=== PATIENT | female | born 1930 | race Hispanic/Latino ===

== ENCOUNTER 2019-01-17 10:26 | Inpatient (IN) | payer MEDICARE ==
[2019-01-17] MEDS ORDERED: TORADOL IM ONE ×2 (10:55→12:00)
[2019-01-17] MEDS ORDERED: NORMODYNE IV ONE (10:55)
--- NOTE | 2019-01-17 10:59 | Emergency Department Report ---
ED General Adult HPI - General Chief complaint: Back Pain/Injury Stated complaint: LOW BACK PAIN Time Seen by Provider: 01/17/19 10:49 Source: patient, EMS Mode of arrival: Stretcher Limitations: No Limitations - History of Present Illness Initial comments: This is an 88 year old woman who lives alone and was encouraged to come to the emergency department this morning for back pain of 2 weeks' duration. The patient states her lower back pain was precipitated by a ground level fall. She denies previous problems with her back. She has not had any medical evaluation prior to today. She states that she does have a primary care physician. She denies a history of hypertension or other chronic medical problems although her blood pressure is high today. She states that she does see her primary care physician regularly but is on no medication whatsoever. Patient's back pain is somewhat intermittent and exacerbated by movement. It does not radiate. There are no associated symptoms. -: Gradual, week(s) Location: back Radiation: non-radiation Quality: aching Consistency: intermittent Improves with: none Worsens with: movement Associated Symptoms: denies other symptoms - Related Data Home Medications Medication Instructions Recorded Confirmed Last Taken No Known Home Medications [No 01/17/19 01/17/19 Unknown Reported Home Medications] Allergies Allergy/AdvReac Type Severity Reaction Status Date / Time No Known Allergies Allergy Unverified 01/17/19 10:42 ED Review of Systems ROS: Stated complaint: LOW BACK PAIN Other details as noted in HPI Constitutional: denies: chills, fever Eyes: denies: eye pain, eye discharge, vision change ENT: denies: ear pain, throat pain Respiratory: denies: cough, shortness of breath, wheezing Cardiovascular: denies: chest pain, palpitations Endocrine: no symptoms reported Gastrointestinal: denies: abdominal pain, nausea, diarrhea Genitourinary: frequency. denies: urgency, dysuria, discharge Musculoskeletal: back pain. denies: joint swelling, arthralgia Skin: denies: rash, lesions Neurological: denies: headache, weakness, paresthesias Psychiatric: denies: anxiety, depression Hematological/Lymphatic: denies: easy bleeding, easy bruising ED Past Medical Hx - Past Medical History Previous Medical History?: No - Surgical History Past Surgical History?: No - Social History Smoking Status: Former Smoker Substance Use Type: None - Medications Home Medications: Home Medications Medication Instructions Recorded Confirmed Last Taken Type No Known Home Medications [No 01/17/19 01/17/19 Unknown History Reported Home Medications] ED Physical Exam - General Limitations: No Limitations General appearance: alert, in no apparent distress - Head Head exam: Present: atraumatic, normocephalic - Eye Eye exam: Present: normal appearance. Absent: scleral icterus - ENT ENT exam: Present: mucous membranes moist - Neck Neck exam: Present: normal inspection - Respiratory Respiratory exam: Present: normal lung sounds bilaterally. Absent: respiratory distress - Cardiovascular Cardiovascular Exam: Present: regular rate, normal rhythm. Absent: systolic murmur, diastolic murmur, rubs, gallop - GI/Abdominal GI/Abdominal exam: Present: soft, normal bowel sounds, organomegaly (large and firm liver). Absent: distended, tenderness, guarding, rebound, rigid, mass, bruit, pulsatile mass - Extremities Exam Extremities exam: Present: normal inspection - Back Exam Back exam: Present: normal inspection, paraspinal tenderness (lumbar). Absent: CVA tenderness (R), CVA tenderness (L), muscle spasm, vertebral tenderness - Neurological Exam Neurological exam: Present: alert, oriented X3, CN II-XII intact. Absent: motor sensory deficit - Psychiatric Psychiatric exam: Present: normal affect, normal mood - Skin Skin exam: Present: warm, dry, intact, normal color. Absent: rash ED Course Vital Signs 01/17/19 01/17/19 01/17/19 10:43 11:33 11:53 Temperature 98.1 F Pulse Rate 109 H 79 74 Respiratory 16 17 Rate Blood Pressure 191/88 175/65 Blood Pressure 169/77 [Right] O2 Sat by Pulse 95 100 Oximetry 01/17/19 12:33 Temperature Pulse Rate 84 Respiratory 17 Rate Blood Pressure Blood Pressure 154/66 [Right] O2 Sat by Pulse 100 Oximetry - Reevaluation(s) Reevaluation #1: CT was consistent with metastatic disease both the liver and probably to L3. No primary was identified. Chemistries need to be repeated due to homolysis. A urine as yet pending. The patient is referred to the hospitalist service for further care and evaluation. 01/17/19 13:55 ED Medical Decision Making - Lab Data Result diagrams: 01/17/19 12:40 01/17/19 12:40 - EKG Data -: EKG Interpreted by Me EKG shows normal: sinus rhythm, axis (left), intervals, QRS complexes (suggest LVH, left atrial enlargement), ST-T waves Rate: normal - EKG Data Interpretation: LVH - Radiology Data Radiology results: report reviewed FINDINGS: Abdomen: There are multiple low-density lesions in the liver measures soft ti ssue density concerning for metastatic disease. An index lesion in the right lobe, series 2 image 39 measures 6 cm in diameter. An index lesion in the lateral segment of the left lobe, series 2 image 35 measures 4.9 cm. In addition there is a 7.5 cm lesion in the left lobe. There is an 8 x 4.6 cm lesion in the medial segment of the left lobe and a 6 cm lesion in the caudate lobe. The spleen, pancreas, and small bowel are unremarkable. The adrenal glands show mild nodularity but no definite discrete mass. Kidneys are unremarkable. There is cholelithiasis. Atherosclerotic calcifications are noted in the aorta, renal arteries, and iliac arteries Pelvis: Phleboliths are noted. No adenopathy is seen. No mass lesions are seen pelvis. Sclerotic change at L3 is suspicious for metastatic disease. There is degenerative change in the spine. There is minimal superior endplate compression of the L3 vertebral body. No retropulsed fragments are seen. IMPRESSION: 1. There are mass lesions in the liver likely representing metastatic disease. There is minimal superior endplate compression of the L3 vertebral body which is age indeterminate. There is no surrounding hematoma. There are no retropulsed fragments. There is sclerotic change in the L3 vertebral body which is suspicious for metastatic disease. There is degenerative change in the lower lumbar spine. There is cholelithiasis. There is atherosclerotic disease Critical care attestation.: If time is entered above; I have spent that time in minutes in the direct care of this critically ill patient, excluding procedure time. ED Disposition Clinical Impression: Metastatic carcinoma Lower back pain Qualifiers: Chronicity: chronic Back pain laterality: unspecified Sciatica presence: without sciatica Qualified Code(s): M54.5 - Low back pain; G89.29 - Other chronic pain Disposition: OP ADMIT IP TO THIS HOSP Is pt being admited?: Yes Does the pt Need Aspirin: No Condition: Stable Referrals: JOSEE DANIELS MD [Primary Care Provider] - 3-5 Days Time of Disposition: 13:56
[2019-01-17] MEDS ORDERED: TORADOL IVP ONE (12:00)
[2019-01-17 12:50] LABS: Basophils # (Auto) 0.1 K/mm3 (0.0-0.1); Basophils % (Auto) 0.7 % (0.0-1.8); Eosinophils % (Auto) 0.4 % (0.0-4.3); Hematocrit 48.6 % (30.3-42.9); Hemoglobin 16.4 gm/dl (10.1-14.3); Lymphocytes # (Auto) 0.9 K/mm3 (1.2-5.4); Lymphocytes % (Auto) 11.5 % (13.4-35.0); Mean Corpuscular HGB Conc 34 % (30-34); Mean Corpuscular Volume 88 fl (79-97); Monocytes # (Auto) 0.6 K/mm3 (0.0-0.8); Monocytes % (Auto) 7.9 % (0.0-7.3); Platelet Count 174 K/mm3 (140-440); Red Blood Count 5.51 M/mm3 (3.65-5.03); Red Cell Distribution Width 14.1 % (13.2-15.2)
[2019-01-17 13:21] LABS: Bilirubin,Direct TNR mg/dL (0-0.2)
[2019-01-17 13:22] LABS: Alanine Aminotransferase TNR units/L (7-56)
[2019-01-17 13:30] LABS: BUN/Creatinine Ratio TNR; Blood Urea Nitrogen TNR mg/dL (7-17)
[2019-01-17 13:31] LABS: Albumin TNR g/dL (3.9-5); Calcium TNR mg/dL (8.4-10.2)
[2019-01-17 13:32] LABS: Hemolysis Index TNR
--- NOTE | 2019-01-17 13:34 | Cat Scan Report ---
CT scan of the abdomen and pelvis without contrast INDICATION: LBP. TECHNIQUE: All CT scans at this location are performed using the following dose modulation technique: Automated exposure control. Helical slices were obtained through the abdomen and pelvis. No contrast is adminis tered. COMPARISON: None available. FINDINGS: Abdomen: There are multiple low-density lesions in the liver measures soft tissue density concerning for metastatic disease. An index lesion in the right lobe, series 2 image 39 measures 6 cm in diamete r. An index lesion in the lateral segment of the left lobe, series 2 image 35 measures 4.9 cm. In add ition there is a 7.5 cm lesion in the left lobe. There is an 8 x 4.6 cm lesion in the medial segment of the left lobe and a 6 cm lesion in the caudate lobe. The spleen, pancreas, and small bowel are unremarkable. The adrenal glands show mild nodularity but n o definite discrete mass. Kidneys are unremarkable. There is cholelithiasis. Atherosclerotic calcifications are noted in the aorta, renal arteries, and iliac arteries Pelvis: Phleboliths are noted. No adenopathy is seen. No mass lesions are seen pelvis. Sclerotic change at L3 is suspicious for metastatic disease. There is degenerative change in the spin e. There is minimal superior endplate compression of the L3 vertebral body. No retropulsed fragments are seen. IMPRESSION: 1. There are mass lesions in the liver likely representing metastatic disease. There is minimal superior endplate compression of the L3 vertebral body which is age indeterminate. T here is no surrounding hematoma. There are no retropulsed fragments. There is sclerotic change in the L3 vertebral body which is suspicious for metastatic disease. There is degenerative change in the lo wer lumbar spine. There is cholelithiasis. There is atherosclerotic disease Signer Name: Tre Milian MD Signed: 01/17/2019 1:29 PM Workstation Name: [id number]
--- NOTE | 2019-01-17 14:09 | History and Physical Report ---
History of Present Illness Chief complaint: Weakness, confusion History of present illness: 88 YO Female with No PMH presents to ED for evaluation. Pt is confused and provides limited history. Further history provided by son who is at bedside during exam and interview. As per son, the patient has complained of pain in her back over the past several months with worsening pain over the past 2 weeks. Pt is able to report that she experienced what is described as a ground level fall approximately 2 weeks. ago. Pt has experienced worsening pain over the past time frame. Pt son reports progressive weakness, worsening confusion, decreased ability to independently conduct activities of daily living. Pt lives alone, and is unable to ambulate, and has increased bedbound status. Pt is currently unable to bear weight without increased pain and has experienced multiple falls over the past 2 weeks secondary to weakness and gait instability. EMS notified, and upon arrival the patient was found to be in distress and transported to [facility]. 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 No further history obtainable. Pt admitted to [facility] and treated with supportive care. Past History Past Medical History: No medical history, other (reviewed) Past Surgical History: No surgical history, Other (reviewed) Social history: single. denies: smoking, alcohol abuse, prescription drug abuse Family history: no significant family history (reviewed) Medications and Allergies Allergies Allergy/AdvReac Type Severity Reaction Status Date / Time No Known Allergies Allergy Unverified 01/17/19 10:42 Home Medications Medication Instructions Recorded Confirmed Last Taken Type No Known Home Medications [No 01/17/19 01/17/19 Unknown History Reported Home Medications] Review of Systems ROS unobtainable: due to mental status Exam - Constitutional Vitals: Temp Pulse Resp BP Pulse Ox 98.1 F 84 17 154/66 100 01/17/19 10:43 01/17/19 12:33 01/17/19 12:33 01/17/19 12:33 01/17/19 12:33 General appearance: Present: mild distress, cachectic - EENT Eyes: Present: PERRL ENT: hearing intact, clear oral mucosa - Neck Neck: Present: supple, normal ROM - Respiratory Respiratory effort: normal Respiratory: bilateral: CTA - Cardiovascular Heart Sounds: Present: S1 & S2. Absent: rub, click - Extremities Extremities: pulses symmetrical Extremity abnormal: other (spinal tenderness, ) Peripheral Pulses: within normal limits - Abdominal General gastrointestinal: Present: soft, non-tender, non-distended, normal bowel sounds Female genitourinary: Present: normal - Integumentary Integumentary: Present: clear, warm, dry - Musculoskeletal Musculoskeletal: generalized weakness - Psychiatric Psychiatric: no appropriate mood/affect, no intact judgment & insight, no memory intact - Neurologic Neurologic: CNII-XII intact, no focal deficits, moves all extremities, no gait normal Results - Labs CBC & Chem 7: 01/17/19 13:55 01/17/19 13:55 Labs: Abnormal lab results 01/17/19 Range/Units 12:40 RBC 5.51 H (3.65-5.03) M/mm3 Hgb 16.4 H (10.1-14.3) gm/dl Hct 48.6 H (30.3-42.9) % Lymph % (Auto) 11.5 L (13.4-35.0) % [place] % (Auto) 7.9 H (0.0-7.3) % Lymph # 0.9 L (1.2-5.4) K/mm3 Seg Neutrophils % 79.5 H (40.0-70.0) % Assessment and Plan - Patient Problems (1) Severe malnutrition Current Visit: Yes Status: Acute Plan to address problem: Encourage increased protein intake, dietary supplementation (2) Metastatic malignant neoplasm Current Visit: Yes Status: Acute Qualifiers: Digestive structure secondary neoplasm location: metastatic to liver Plan to address problem: CT head, CT Chest/Abdomen Pelvis, MR lumbar spine, pain control, supportive care, CBC, CMP. (3) Hypertensive urgency, malignant Current Visit: Yes Status: Acute Plan to address problem: supportive care, pain control, IV hydralazine prn for SBP >155 (4) Advance care planning Current Visit: Yes Status: Acute Plan to address problem: Pt care plan discussed with patient and family:+30minutes, (5) DVT prophylaxis Current Visit: Yes Status: Acute Plan to address problem: SCD to BLE while in bed, prophylactic lovenox
[2019-01-17] MEDS ORDERED: ZOFRAN IV PRN (14:14)
[2019-01-17] MEDS ORDERED: TYLENOL PO PRN (14:14)
[2019-01-17] MEDS ORDERED: PROVENTIL IH PRN (14:14)
[2019-01-17] MEDS ORDERED: PERCOCET 5/325 PO PRN (14:14)
[2019-01-17] MEDS ORDERED: MORPHINE IV PRN ×2 (14:14→15:39)
[2019-01-17] MEDS ORDERED: SODIUM CHLORIDE FLUSH SYRINGE 10 ML IV PRN (14:14)
[2019-01-17 14:20] LABS: Basophils # (Auto) 0.1 K/mm3 (0.0-0.1); Basophils % (Auto) 0.6 % (0.0-1.8); Eosinophils % (Auto) 0.1 % (0.0-4.3); Hematocrit 46.9 % (30.3-42.9); Hemoglobin 15.7 gm/dl (10.1-14.3); Lymphocytes # (Auto) 0.9 K/mm3 (1.2-5.4); Mean Corpuscular HGB Conc 34 % (30-34); Mean Corpuscular Volume 88 fl (79-97); Monocytes # (Auto) 0.6 K/mm3 (0.0-0.8); Monocytes % (Auto) 6.7 % (0.0-7.3); Platelet Count 179 K/mm3 (140-440); Red Blood Count 5.32 M/mm3 (3.65-5.03); Red Cell Distribution Width 14.1 % (13.2-15.2)
[2019-01-17 14:45] LABS: Albumin 3.3 g/dL (3.9-5); BUN/Creatinine Ratio 27; Blood Urea Nitrogen 38 mg/dL (7-17); Calcium 9.8 mg/dL (8.4-10.2); Hemolysis Index 104
[2019-01-17 15:00] LABS: Bilirubin,Direct < 0.2 mg/dL (0-0.2)
[2019-01-17 15:01] LABS: Alanine Aminotransferase 29 units/L (7-56)
[2019-01-17] MEDS ORDERED: NACL 0.9% 1000 ML 1,000 ML IV ONE (15:38)
[2019-01-17] MEDS ORDERED: ATIVAN IV ONE (15:39)
[2019-01-17] MEDS ORDERED: ATIVAN IV PRN (15:39)
--- NOTE | 2019-01-17 16:31 | Event Note ---
Date: 01/17/19 Discussed care plan with son, Willian Puckett. Pt son elects to have Patient discharged home with home hospice care. Pt is agitated, and refuses further testing. Pt yelling at staff, confused, and states that she "Wants to go home". Pt son reports that he currently lives with his mother and will assume care with home hospice support. Pt son reports that his mother does not want treatment for her malignance, and states that he understands and will acknowledge his mother's wishes. Additional 30 minutes dedicated to formulation of care plan.
[2019-01-17] MEDS ORDERED: NACL 0.9% 1000 ML 1,000 ML ONE (16:50)
[2019-01-17 20:04] VITALS: BP 167/63
[2019-01-17] MEDS ORDERED: SODIUM CHLORIDE FLUSH SYRINGE 10 ML IV SCH (22:00)
[2019-01-19] MEDS ORDERED: LOVENOX SUB-Q SCH (10:00)
== END 2019-01-17 20:30 | disposition hospice, home (50) | DRG 70 ==
LOC: ED 10:26 → 2B-ACE 14:14
PROVIDERS: ADMIT Internal Medicine; ATTEND Internal Medicine
DX: G93.49 Other encephalopathy (principal); E43 Unspecified severe protein-calorie malnutrition; C79.51 Secondary malignant neoplasm of bone; C78.7 Secondary malignant neoplasm of liver and intrahepatic bile duct; Z68.1 Body mass index [BMI] 19.9 or less, adult; I16.0 Hypertensive urgency; M51.9 Unspecified thoracic, thoracolumbar and lumbosacral intervertebral disc disorder; C80.1 Malignant (primary) neoplasm, unspecified
CPT/HCPCS: 36415; 74176; 80048; 80053; 80076; 85025; 93005; 93010; 96372; 96374; G0378; J1885; J7030